=== PATIENT | male | born 1955 | race Caucasian/White ===

== ENCOUNTER 2022-10-29 07:35 | Outpatient (CLI) | payer OTHER, SELFPAY ==
[2022-10-29 07:50] VITALS: BMI 28.0
--- NOTE | 2022-10-29 07:50 | ECG_ITS ---
[facility] Test Date: 2022-10-29 Pat Name: Ezra Gómez Department: Room: Gender: Male Reed Dipper: [place] Oh : 1955 Requested By: Noelle Montana Order Number: [id number] Darcy MD: Baltazar Forbes M.D. Interpretive Statements NAME OF STUDY: LEXISCAN SESTAMIBI STRESS TEST INDICATION: Chest Pain PROCEDURE: At the baseline, the EKG revealed normal sinus rhythm with a poor R wave progression The baseline heart was 70 bpm with a blood pressue of 149/97 mm of Hg Lexiscan was infused over a period of 20 seconds. A total of 0.4 milligrams of Lexiscan was infused. The stress phase was continued for a total of 5 minutes. Heart rate at the end of the stress phase was 77 bpm with a blood pressure 140/82 mm of Hg. The EKG at the peak infusion revealed no significant changes. Sestamibi was injected 20 seconds after the Lexiscan infusion. Heart rate at the end of the recovery phase was 74 bpm with a blood pressure of 142/89 mm of Hg. CONCLUSION: 1. No significant EKG changes with the LexiScan infusion 2. No LexiScan induced chest pain or cardiac arrhythmia 3. Normal blood pressure and heart rate response 4. Sestamibi/sestamibi perfusion scan pending; see separate report. Electronically Signed On 10-31-2022 7:51:07 CDT by Baltazar Forbes M.D. [id number]
--- NOTE | 2022-10-29 07:51 | NMCV_ITS ---
NM jonny perf SPECT r/s* [id number] Ezra Gómez Age: 67 Gender: M : 1955 Exam Date: 10/29/2022 08:54 Ordering Phys: Noelle Montana MD Technologist: SIDNEY Yeung Exam Location: [facility] Indications: CHEST PAIN STRESS TEST Please see separate stress test report in [facility] for full findings IMAGE PROTOCOL Stress/Rest 1 Lexiscan Day Radiopharmaceutical Dose (mCi) Administration Site Administered by Rest: Tc-99m 10.7 IV SIDNEY Mendoza Sestamibi Stress:Tc-99m 32.8 IV SIDNEY Mendoza Sestamibi Rest: 29-Oct-2022 60 Discovery 630 Stress: 29-Oct-2022 30 Discovery 630 0.4mg Lexiscan. Images obtained in supine and prone position. SPECT RESULTS Technical Quality: Excellent Raw Data Analysis: Normal Image Corrections: No attenuation or motion correction applied Summed Stress Score: 4 Summed Rest Score: 1 Summed Difference Score: 3 PERFUSION FINDINGS Small to moderate area of moderately decreased tracer uptake was noted in the basal and mid inferolateral, and apical lateral segments. Significant reversibility was noted in the mid inferolateral and apical lateral regions FUNCTIONAL RESULTS (calculated via Gated SPECT) Stress Image LV EF (%): 55 Stress EDV (mL):93 TID: 1.02 Stress ESV (mL):42 FUNCTIONAL FINDINGS: Segmental wall motion analysis revealing no gross wall motion abnormalities IMPRESSIONS 1. Myocardial perfusion imaging revealing small to moderate area of moderate decreased tracer uptake in the basal and mid inferolateral and apical lateral regions with some reversibility in the mid inferolateral and apical lateral regions suggesting myocardial scarring with ischemia in the distribution of the left circumflex artery. 2. Normal LV ejection fraction 55%. 3. LV wall motion analysis revealing no gross wall motion abnormalities. 4. Normal LV volume No similar previous studies are available for comparison Dr Baltazar Forbes MD FACC (Electronically Signed) Final Date: 29 Oct 2022 16:26 S
[2022-10-29] MEDS: regadenoson 0.4 Mg/5 ml Syringe IVP (09:35)
[2022-10-29 10:00] VITALS: BP 142/89; PULSE 74
== END 2022-10-29 07:36 | disposition home or self-care (01) ==
LOC: CDL 07:38
PROVIDERS: PCP Family Medicine; Visit Provider Family Medicine
DX: R07.9 Chest pain, unspecified (principal)
CPT/HCPCS: 36415; 78452; 93017; 96374; A9500; J2785

== ENCOUNTER → 2022-11-19 14:13 | Outpatient (BNVA) | payer OTHER, SELFPAY | PROVIDERS: PCP Family Medicine; Referring Provider Family Medicine; Visit Provider Orthopaedic Surgery | DX: M17.11 Unilateral primary osteoarthritis, right knee (principal) | CPT/HCPCS: 99203 ==

== ENCOUNTER → 2022-12-11 09:54 | Outpatient (BNVA) | payer OTHER, SELFPAY | PROVIDERS: PCP Family Medicine; Visit Provider Internal Medicine Cardiovascular Disease | DX: R06.02 Shortness of breath (principal); R94.39 Abnormal result of other cardiovascular function study; E78.5 Hyperlipidemia, unspecified; M17.11 Unilateral primary osteoarthritis, right knee; F41.9 Anxiety disorder, unspecified; F32.A Depression, unspecified | CPT/HCPCS: 93005; 99204 ==

== ENCOUNTER 2023-09-23 08:47 | Emergency (ER) | payer OTHER, SELFPAY ==
[2023-09-23 08:57] VITALS: BP 126/72; PULSE 102; RESP 16; TEMP 37.1; O2SAT 96
--- NOTE | 2023-09-23 09:33 | CT_ITS ---
WS: [id number] CT ABDOMEN PELVIS TECHNIQUE: Contrast-enhanced CT of the abdomen and pelvis with coronal and sagittal reformatted image s. CLINICAL INFORMATION: constipation, ab pain, N/V COMPARISON: None. DLP: 736.[address] scans at [facility] use at least one of these dose optimization techniques: automated e xposure control; mA and/or kV adjustment per patient size (includes targeted exams where dose is matc hed to clinical indication); or iterative reconstruction. FINDINGS: Lung bases are well aerated. Slight bibasal atelectasis. Diffuse fatty infiltration of the liver. Nor mal portal vein and splenic vein. Fatty atrophy of the pancreas. Normal spleen. Small esophageal hiat al hernia. Adrenal glands are normal. Mild cortical scarring RIGHT kidney. No hydronephrosis in the k idney. Small renal cysts. Celiac and SMA are patent. Slightly ectatic aorta measuring 2.5 x 2.5 cm in maximum dimension. AP by transverse. Sigmoid diverticulosis. No evidence of acute diverticulitis. Prior appendectomy. No evidence of small or large bowel obstruction. IMPRESSION: 1. Prior appendectomy. 2. Diffuse fatty infiltration of the liver. 3. Small esophageal hiatal hernia. 4. Sigmoid diverticulosis. No evidence of acute diverticulitis. 5. Slightly ectatic abdominal aorta measuring 2.5 x 2.5 cm. 6. No other acute findings.
--- NOTE | 2023-09-23 09:34 | W.ED.NAVMDI ---
HPI - Nausea/Vomiting/Diarrhea General: Chief complaint: Nausea/Vomiting/Diarrhea Stated complaint: vomiting Time Seen by Provider: 09/23/23 09:14 Source: patient and family () Mode of arrival: ambulatory Limitations: no limitations History of Present Illness: Patient is a nice 68-year-old male with a history of hyperlipidemia and insomnia here along with his for concerns of constipation, nausea, vomiting. states he has not had a bowel movement in 4 days. She states this is very abnormal for him as he is normally very regular. He states he is passing small amounts of gas. He states anytime he tries to eat or drink anything or swallow his medications he immediately vomits. He is having intermittent abdominal pains but describes them as mild. No fevers. Previous abdominal surgeries include an appendectomy as a child. states following the surgery his guts got twisted and he required an additional surgery to untwist them . Patient has no recent illness. He has not noticed any blood in his emesis. He is not having any rectal pain or swelling. He states he does not have an urge to defecate. MD elicited complaint: nausea, vomiting, abdominal pain and other (constipation) Onset (ago): day(s) Associated nausea: Yes Associated abdominal pain: Yes Location of pain: Diffuse Radiation: diffuse Pain consistency: intermittent Severity: mild Quality: cramping Exacerbating factors: eating Relieving factors: none Associated symtoms: Reports nausea; Denies chest pain, dizziness, dysuria, fatigue, headache(s) or malaise Treatment prior to arrival: other (OTC laxatives) Review of Systems Const: Denies: fever(s), chills, body aches, fatigue or malaise Card: Denies: chest pain Resp: Denies: dyspnea GI: Reports: abdominal pain, nausea, vomiting and constipation; Denies: hematemesis, heartburn, pain on defecation, rectal pain, rectal swelling, hematochezia or melena : Denies: flank pain, difficulty urinating, dysuria or hematuria Musc: Denies: back pain Neuro: Denies: headache(s) or dizziness [facility] PFSH: Medical History Hypercholesterolemia Anxiety and depression Hyperlipidemia Insomnia Surgical History H/O elbow surgery LEFT History of ankle surgery H/O knee surgery RIGHT -TORN LIGAMENT H/O wrist surgery BILATERAL Hx of appendectomy Family History Father No problems noted. Mother , AT AGE 62 Aneurysm Social History Smoking and tobacco/nicotine status: former use of tobacco/nicotine Alcohol intake: never Marital status: Current occupational status: retired Physical Exam Const: COMMON NORMALS: no acute distress, average body habitus, patient oriented x3, no limitations, healthy appearing, alert and well nourished Eye: COMMON NORMALS: no scleral icterus Resp: COMMON NORMALS: normal respiratory effort and clear to auscultation bilaterally AUSCULTATION: clear to auscultation bilaterally Cardio: COMMON NORMALS: regular rate and regular rhythm RATE: regular rate RHYTHM: regular rhythm GI: COMMON NORMALS: Normal to inspection, nondistended, normoactive bowel sounds present, Soft to palpation, No hepatosplenomegaly present and no masses INSPECTION: Yes normal to inspection AUSCULTATION: Yes normoactive bowel sounds PALPATION: Yes Soft to palpation, Yes Tenderness to palpation present (GI) (tenderness throughout abdomen; states he is not having pain at rest), Yes Guarding due to palpation present (GI), No Rigid due to palpation and Yes No hepatosplenomegaly present : COMMON NORMALS: Yes no CVA tenderness BLADDER/KIDNEY EXAM: Yes no CVA tenderness Back/Pelvis: COMMON NORMALS: no CVA tenderness and thoracic and lumbar spine normal to inspection Extremity: GENERAL: Yes normal exam except as noted Neuro: TIMMY COMA SCALE: document GCS findings Bradford coma scale eye opening: Spontaneous Timmy coma scale verbal response: Orientated Bradford coma scale motor response: Obey commands Bradford coma scale total score: 15 COMMON NORMALS: patient oriented x3, moves all extremities, no focal motor deficits and no sensory deficits noted SENSORIUM/ORIENTATION: Yes alert Skin: COMMON NORMALS: no rashes or lesions noted GENERAL SKIN EXAM: no rashes or lesions noted Course Vital Signs: Vital signs: Vital Signs Temperature 98.8 F 09/23/23 08:57 Pulse Rate 102 H 09/23/23 08:57 Respiratory Rate 16 09/23/23 08:57 Blood Pressure 126/72 09/23/23 08:57 Pulse Oximetry 96 09/23/23 08:57 MDM - Nausea/Vomiting/Diarrhea Medical Decision Making Patient appears in no acute distress. He has not had any vomiting while here. His blood work is unremarkable. CT imaging does not show any acute pathology. He will be given meds for treatment of constipation. Discussed [id number] therapies he may use as well. He states he does not want to try an enema/suppository. Return to ED precautions given. Medical Records I reviewed the patient's medical records. Lab Data I reviewed the patient's lab results. 09/23/23 09:52 09/23/23 09:52 Laboratory Results WBC 3.68 10^3/uL (3.29-11.43) 09/23/23 09:52 RBC 3.95 10^6/uL (3.85-5.65) 09/23/23 09:52 Hgb 12.00 g/dL (11.27-16.99) 09/23/23 09:52 Hct 36.0 % (37-53) L 09/23/23 09:52 MCV 91.1 fl (82-101) 09/23/23 09:52 MCH 30.4 pg (27-33) 09/23/23 09:52 MCHC 33.3 g/dL (30-55) 09/23/23 09:52 RDW 12.7 % (12.1-15.1) 09/23/23 09:52 Plt Count 194 10^3/cmm (157-399) 09/23/23 09:52 MPV 8.6 fL (7.4-10.4) 09/23/23 09:52 Neut % (Auto) 60.0 % 09/23/23 09:52 Lymph % (Auto) 29.6 % 09/23/23 09:52 [place] % (Auto) 9.8 % 09/23/23 09:52 Eos % (Auto) 0.0 % 09/23/23 09:52 Baso % (Auto) 0.3 % 09/23/23 09:52 Neut # (Auto) 2.21 10^3/uL (1.8-7.7) 09/23/23 09:52 Lymph # (Auto) 1.1 10^3/uL (0.8-4.8) 09/23/23 09:52 [place] # (Auto) 0.4 10^3/uL (0.2-0.9) 09/23/23 09:52 Eos # (Auto) 0.0 10^3/uL (0.0-0.8) 09/23/23 09:52 Baso # (Auto) 0.0 10^3/uL (0.0-0.1) 09/23/23 09:52 Nucleated RBC % (auto) 0 % 09/23/23 09:52 Nucleated RBCs # 0.0 /100WBC 09/23/23 09:52 Sodium 134 mmol/L (136-145) L 09/23/23 09:52 Potassium 3.9 mmol/L (3.5-5.1) 09/23/23 09:52 Chloride 96 mmol/L (98-107) L 09/23/23 09:52 Carbon Dioxide 25 mmol/L (22-29) 09/23/23 09:52 Anion Gap 16.9 (5-19) 09/23/23 09:52 BUN 13 mg/dL (8-23) 09/23/23 09:52 Creatinine 1.1 mg/dL (0.7-1.2) 09/23/23 09:52 GFR Calculation 66.4 mL/min (90-130) L 09/23/23 09:52 Glucose 109 mg/dL (65-115) 09/23/23 09:52 Calculated Osmolality 279 mOsm/kg (285-295) L 09/23/23 09:52 Calcium 8.6 mg/dL (8.5-10.5) 09/23/23 09:52 Total Bilirubin 0.4 mg/dL (0.15-1.2) 09/23/23 09:52 AST 30 U/L (0-40) 09/23/23 09:52 ALT 33 U/L (0-41) 09/23/23 09:52 Alkaline Phosphatase 131 U/L (40-130) H 09/23/23 09:52 Total Protein 7.5 g/dL (6.6-8.7) 09/23/23 09:52 Albumin 4.2 g/dL (3.5-5.2) 04/16/24 09:52 Globulin 3.3 g/dL (1.3-4.6) 09/23/23 09:52 Lipase 28 U/L (13-60) 09/23/23 09:52 Urine Color Yellow (Yellow) 09/23/23 09:41 Urine Appearance Clear (CLEAR) 09/23/23 09:41 Urine pH 5 (5-7) 09/23/23 09:41 Ur Specific [place] 1.025 (1.005-1.030) 09/23/23 09:41 Urine Protein Neg (Negative) 09/23/23 09:41 Urine Glucose (UA) Norm (Normal) 09/23/23 09:41 Urine Ketones 1+ (Negative) H 09/23/23 09:41 Urine Blood Neg (Negative) 09/23/23 09:41 Urine Nitrate Negative (Negative) 09/23/23 09:41 Urine Bilirubin Neg (Negative) 09/23/23 09:41 Urine Urobilinogen Neg mg/dL (Negative) 09/23/23 09:41 Ur Leukocyte Esterase Negative (Negative) 09/23/23 09:41 All radiology interpretation(s) finalized by discharge Discharge Plan Discharge Patient Disposition: Home Clinical Impression: Constipation Qualifiers: Constipation type: other constipation type Qualified Code(s): K59.09 - Other constipation Condition: Stable Prescriptions: New ondansetron 4 mg tablet,disintegrating 4 mg PO Q8H PRN (Reason: nausea and vomiting) Qty: 14 0RF No Action atorvastatin 20 mg tablet 10 mg PO DAILY trazodone 100 mg tablet 200 mg PO BEDTIME aspirin [Adult Low Dose Aspirin] 81 mg tablet,delayed release (DR/EC) 81 mg PO DAILY multivitamin Tablet 1 tab PO QAM Discharge Orders: Discharge ED (Routine); Ordered 09/23/23 Ordered By: Maritza Minor Referrals: Noelle Montana MD [Primary Care Provider] - Patient Instructions: Constipation (DC) Activity Restrictions/Additional Instructions: As we discussed you may drink the oral solution given to you prior to discharge when you get home. Even after a successful bowel movement I would like you to continue MiraLAX twice daily over the next 5 days in addition to Colace and possibly even Senokot to help continue to evacuate the colon. He may use the Zofran as needed for nausea. He need to return to the emergency department for severe abdominal pain, intractable vomiting, inability to have a bowel movement or pass gas, fevers, generally feeling worse or unwell, or any other concerns you may have. Coding Level of Care Code ED Lab Analyst for Tara Solano
[2023-09-23] MEDS: sodium chloride 0.9% 1,000 ML 999 ML IV (09:39)
[2023-09-23 09:51] LABS: Add Urine Microscopic? NO; Charge for UA Resulting for Rev
[2023-09-23 09:54] LABS: Bilirubin Urine Neg (Negative); Blood Urine Neg (Negative); Glucose Urine UA Norm (Normal); Ketones Urine 1+ (Negative); Leukocyte Esterase Urine Negative (Negative); Nitrate Urine Negative (Negative); Protein Urine Neg (Negative); Specific Gravity, Urine 1.025 (1.005-1.030); Urine Appearance Clear (CLEAR); Urine Color Yellow (Yellow); Urobilinogen Urine Neg (Negative); pH Urine 5 (5-7)
[2023-09-23 09:58] LABS: Basophils % 0.3 %; Lymphocytes # 1.1 10^3/uL (0.8-4.8); Lymphocytes % 29.6 %; Mean Corpuscular HGB Conc 33.3 g/dL (30-55); Mean Corpuscular Hemoglobin 30.4 pg (27-33); Mean Corpuscular Volume 91.1 fl (82-101); Mean Platelet Volume 8.6 fL (7.4-10.4); Monocytes # 0.4 10^3/uL (0.2-0.9); Monocytes % 9.8 %; Neutrophils # 2.21 10^3/uL (1.8-7.7); Nucleated Red Blood Cells % 0 %; Platelet Count 194 10^3/cmm (157-399); Red Blood Count 3.95 10^6/uL (3.85-5.65); Red Cell Distribution Width 12.7 % (12.1-15.1); White Blood Count 3.68 10^3/uL (3.29-11.43)
[2023-09-23 10:15] LABS: Alanine Aminotransferase 33 U/L (0-41); Albumin Level 4.2 g/dL (3.5-5.2); Alkaline Phosphatase 131 U/L (40-130); Anion Gap 16.9 (5-19); Aspartate Amino Transferase 30 U/L (0-40); Blood Urea Nitrogen 13 mg/dL (8-23); Calcium 8.6 mg/dL (8.5-10.5); Carbon Dioxide 25 mmol/L (22-29); Chloride 96 mmol/L (98-107); Creatinine Clr Calc Pharmacy 70.5582; Globulin 3.3 g/dL (1.3-4.6); Glomerular Filtration Rate 66.4 mL/min (90-130); Glucose 109 mg/dL (65-115); Lipase 28 U/L (13-60); Osmolality Calculated 279 mOsm/kg (285-295); Potassium 3.9 mmol/L (3.5-5.1); Sodium 134 mmol/L (136-145); Total Bilirubin 0.4 mg/dL (0.15-1.2); Total Protein 7.5 g/dL (6.6-8.7)
[2023-09-23] MEDS: iohexol 350 mg/mL 500 mL Btl (per mL) IV (10:29)
[2023-09-23] MEDS: lactulose oral liq 20 gm/30 mL UDC 30 GM PO (12:05)
[2023-09-23] MEDS: mineral oil 30 mL UDC PO (12:05)
[2023-09-23] MEDS: magnesium hydroxide 30 mL UDC PO (12:05)
[2023-09-23 12:06] VITALS: BP 137/93; PULSE 84; O2SAT 92
[2023-09-23 12:07] VITALS: BP 137/93; PULSE 84; RESP 18; O2SAT 92
== END 2023-09-23 11:50 | disposition home or self-care (01) ==
PROVIDERS: Emergency Provider Physician Assistant; PCP Family Medicine
DX: K59.09 Other constipation (principal); Z79.82 Long term (current) use of aspirin; Z87.891 Personal history of nicotine dependence; E78.5 Hyperlipidemia, unspecified
CPT/HCPCS: 36415; 74177; 80053; 81003; 83690; 85025; 96360; 96361; 99285; J7030; Q9967

== ENCOUNTER 2024-10-29 14:14 | Outpatient (CLI) | payer OTHER, SELFPAY ==
--- NOTE | 2024-10-29 14:19 | MR_ITS ---
WS: [id number] MRI BRAIN WITH AND WITHOUT CONTRAST HISTORY: VERTIGO COMPARISON: None available. TECHNIQUE: Multiplanar imaging performed through the brain with MultiHance 20 ml's IV. No acute infarcts are seen. Montoya-white matter differentiation is well preserved. Fluid T2 and FLAIR signal hyperintensity surrounding the ventricles and extending into the subcortical white matter. No prior large territory infarct. Mild bilateral hippocampal atrophy. No susceptibility artifacts or prior lacunar infarcts. Mildly dilated ventricles and extra-axial spaces on the basis of atrophy. There is mild cerebral and cerebellar volume loss. Clivus and pituitary gland are normal. Visualized posterior fossa and brainstem are also normal. Postcontrast images are negative for masses or vascular malformations. Dural venous sinuses are normal. Paranasal sinuses: Well aerated with no significant disease. Mastoid air cells: Normal. Calvarium and scalp: Normal. MR/MR head wo/w con [id number] IMPRESSION: 1. No acute infarcts or hemorrhage. 2. Mild cerebral and cerebellar volume loss. 3. Moderate small vessel disease surrounding the ventricles extending into the subcortical white matter. 4. Mild ventriculomegaly. Ventriculomegaly on the basis of atrophy. 5. No enhancing masses.
[2024-10-29] MEDS: gadobenate dimeglumine 20 mL vial IV (14:58)
== END 2024-10-29 14:15 | disposition home or self-care (01) ==
LOC: RAD 14:14
PROVIDERS: PCP Family Medicine; Visit Provider Family Medicine
DX: Z01.89 Encounter for other specified special examinations (principal); R93.0 Abnormal findings on diagnostic imaging of skull and head, not elsewhere classified; G31.89 Other specified degenerative diseases of nervous system
CPT/HCPCS: 70553

== ENCOUNTER 2024-11-04 15:13 | Outpatient (CLI) | payer OTHER, SELFPAY ==
--- NOTE | 2024-11-04 15:20 | USCV_ITS ---
RicoEzra Age: 69 Gender: M : 1955 Exam Date: 11/04/2024 15:34 Ordering Phys: Noelle Montana MD Technologist: USR [place] [facility] [place]: [place] Risk Factors: Previous Vascular Surgery: Right Brachial BP: / Left Brachial BP: / Right Left Velocity (cm/s) Spectral Plaque Velocity (cm/s) Spectral Plaque Syst/Diast Broadening Syst/Diast Broadening 76.50/ 20.70 Prox CCA 100.30/ 28.80 116.10/32.10 Mid CCA 97.10 / 30.60 90.50/ 19.30 Distal CCA 132.20/ 40.90 103.30/21.20 Prox ICA 81.90 / 20.10 111.10/26.30 Mid ICA 91.20 / 20.30 108.40/13.60 Distal ICA 73.90 / 15.90 86.40 ECA 107.90 1.10 ICA/CCA 0.60 Antegrade Vertebral Antegrade 24.00/ 8.90 cm/s 41.90/ 15.50 cm/s Tri Subclavian Tri 68.90 99.10 CONCLUSIONS Right ICA stenosis <50%. Moderate atheromatous plaque right carotid bulb/ICA. Left ICA stenosis <50%. Moderate to Severe atheromatous plaque left carotid bulb/ICA. Intimal thickening in the common carotid arteries and internal carotid arteries bilaterally. Normal antegrade Doppler flow noted in the right vertebral artery. Normal antegrade Doppler flow noted in the left vertebral artery. Froylan Hernandez MD (Electronically Signed) Final Date: 04 Nov 2024 17:04 S
== END 2024-11-04 15:14 | disposition home or self-care (01) ==
LOC: RAD 15:14
PROVIDERS: PCP Family Medicine; Visit Provider Family Medicine
DX: I65.23 Occlusion and stenosis of bilateral carotid arteries (principal)
CPT/HCPCS: 93880

== ENCOUNTER → 2025-01-03 10:39 | Outpatient (BNVA) | payer OTHER, SELFPAY | PROVIDERS: PCP Family Medicine; Referring Provider Family Medicine; Visit Provider Psychiatry & Neurology Neurology | DX: F03.90 Unspecified dementia, unspecified severity, without behavioral disturbance, psychotic disturbance, mood disturbance, and anxiety (principal); I70.90 Unspecified atherosclerosis; R41.3 Other amnesia; R93.0 Abnormal findings on diagnostic imaging of skull and head, not elsewhere classified | CPT/HCPCS: 96116; 99203 ==

== ENCOUNTER 2025-01-07 07:37 | Outpatient (CLI) | payer OTHER, SELFPAY ==
[2025-01-07] MEDS: iohexol 350 mg/mL 500 mL Btl (per mL) IV (07:55)
--- NOTE | 2025-01-07 08:00 | CT_ITS ---
WS: [id number] CTA HEAD AND NECK TECHNIQUE: Contrast enhanced CTA of the head and neck with coronal and sagittal reformatted images and maximum intensity projection (MIP) images. NASCET criteria utilized. CLINICAL INFORMATION: F03.90 - Unspecified dementia, unspecified severity, with... COMPARISON: None. DLP: 1401.[address] scans at [facility] use at least one of these dose optimization techniques: automated exposure control; mA and/or kV adjustment per patient size (includes targeted exams where dose is matched to clinical indication); or iterative reconstruction. FINDINGS: RIGHT: RIGHT common carotid artery is patent. No significant RIGHT ICA stenosis. Retropharyngeal course of the RIGHT cervical ICA. RIGHT ICA is patent to the skull base. LEFT: LEFT common carotid artery is patent. Moderate calcified atheromatous disease LEFT carotid bulb extending into the ICA. Less than 50% LEFT ICA stenosis. LEFT ICA is patent to the skull base. LEFT dominant vertebral artery. Small but patent RIGHT vertebral artery predominantly ends in PICA. INTRACRANIAL CTA: Basilar artery is patent. Normal vascularity to the [employer] territory bilaterally. Both ICAs are patent at the skull base. Moderate cavernous carotid calcification. Mild narrowing of the supraclinoid ICAs bilaterally. Normal vascularity to the KYLER and MCA territories bilaterally. No proximal flow- limiting intracranial stenosis. Aortic arch calcification. Proximal subclavian arteries are patent. Lung apices are well aerated. Moderate spondylitic changes cervical spine. CT/CT angio headneck* [id number] IMPRESSION: 1. No significant RIGHT ICA stenosis. Retropharyngeal course of the RIGHT cerv ical ICA. 2. Moderate calcified atheromatous plaque LEFT carotid bulb with less than 50% stenosis. LEFT ICA remains patent to the skull base. 3. LEFT dominant vertebral artery. Smaller RIGHT vertebral artery is patent pr edominantly ends in PICA. 4. Moderate cavernous carotid calcification. 5. Mild narrowing supraclinoid ICAs. No proximal flow-limiting intracranial st enosis.
[2025-01-07 08:05] LABS: Blood Urea Nitrogen 11 mg/dL (8-23)
== END 2025-01-07 07:38 | disposition home or self-care (01) ==
LOC: RAD 07:38
PROVIDERS: PCP Family Medicine; Visit Provider Psychiatry & Neurology Neurology
DX: I70.90 Unspecified atherosclerosis (principal); F03.90 Unspecified dementia, unspecified severity, without behavioral disturbance, psychotic disturbance, mood disturbance, and anxiety; R93.0 Abnormal findings on diagnostic imaging of skull and head, not elsewhere classified; I70.8 Atherosclerosis of other arteries; I63.29 Cerebral infarction due to unspecified occlusion or stenosis of other precerebral arteries
CPT/HCPCS: 70496; 70498; 82565; 84520

== ENCOUNTER → 2025-01-17 13:30 | Outpatient (BNVA) | payer OTHER, SELFPAY | PROVIDERS: PCP Family Medicine; Visit Provider Internal Medicine Cardiovascular Disease | DX: R94.39 Abnormal result of other cardiovascular function study (principal); I65.23 Occlusion and stenosis of bilateral carotid arteries; R42 Dizziness and giddiness; E78.2 Mixed hyperlipidemia | CPT/HCPCS: 99215 ==

== ENCOUNTER 2025-02-14 11:19 | Outpatient (CLI) | payer OTHER, SELFPAY ==
--- NOTE | 2025-02-14 12:00 | USCV_ITS ---
Rico Ezra Age: 69 Gender: M : 1955 Exam Date: 02/14/2025 11:39 Ordering Phys: Baltazar Forbes MD ([email or web address]) Technologist: Exam Location: [facility] [place] Indication: cp sob hx of mi BP: 120 / 70 HR: 71 Rhythm: Sinus Technical Quality: MEASUREMENTS (Male / Female) Normal Values 2D ECHO LV Diastolic Diameter PLAX 4.2 cm 4.2 - 5.9 / 3.9 - 5.3 cm IVS Diastolic Thickness 1.4 cm 0.6 - 1.0 / 0.6 - 0.9 cm IVS Systolic Thickness 1.9 cm LVPW Diastolic Thickness 1.4 cm 0.6 - 1.0 / 0.6 - 0.9 cm LVPW Systolic Thickness 1.8 cm LVOT Diameter 2.2 cm LV Ejection Fraction 2D Teich 61.2 % LV Ejection Fraction MOD 4C 71.7 % LV Ejection Fraction MOD 2C 53.8 % LV Ejection Fraction 2C AL 53.0 % LA Diameter 4.0 cm RA Systolic Volume 4C AL 49.5 ml RA Systolic Volume 4C MOD 48.2 ml Aorta at Sinotubular Diameter 2.8 cm M-MODE LA Ao Ratio MM 1.2 AV Cusp Separation MM 2.3 cm DOPPLER AV Peak Velocity 134.0 cm/s LVOT Peak Velocity 89.0 cm/s AV Area Cont Eq vti 3.0 cm squared AV Area Cont Eq pk 2.5 cm squared MV Peak Velocity 90.0 cm/s MV Area PHT 3.7 cm squared Mitral E to A Ratio 0.8 TV Peak Velocity 177.0 cm/s TR Peak Velocity 205.0 cm/s TR Peak Gradient 16.8 mmHg TV Peak E Velocity 74.0 cm/s PV Peak Velocity 158.0 cm/s FINDINGS Left Ventricle Normal left ventricular size and systolic function, EF 55-60%. No regional wall motion abnormalities. Grade 1 diastolic dysfunction Right Ventricle Normal right ventricular size and systolic function. Right Atrium Normal right atrial size. Left Atrium Normal left atrial size. Mitral Valve Structurally normal mitral valve. Mild mitral valve regurgitation. Aortic Valve Structurally normal aortic valve. No significant stenosis or regurgitation. Tricuspid Valve Mild tricuspid valve regurgitation. Insufficient TR jet to calculate RVSP Pulmonic Valve Not well visualized Pericardium Normal Aorta Normal in size IVC Not well visualized CONCLUSIONS LV systolic function is normal with EF of 55-60% Grade 1 diastolic dysfunction Mild mitral regurgitation Mild tricuspid regurgitation Ramone San MD (Electronically Signed) Final Date: 20 February 2025 19:12 S
== END 2025-02-14 11:20 | disposition home or self-care (01) ==
LOC: RAD 11:20
PROVIDERS: PCP Family Medicine; Visit Provider Internal Medicine Cardiovascular Disease
DX: I65.23 Occlusion and stenosis of bilateral carotid arteries (principal); R94.39 Abnormal result of other cardiovascular function study; R42 Dizziness and giddiness; I50.30 Unspecified diastolic (congestive) heart failure; I34.0 Nonrheumatic mitral (valve) insufficiency; I36.1 Nonrheumatic tricuspid (valve) insufficiency
CPT/HCPCS: 93306